=== PATIENT | male | born 1950 | race Caucasian/White ===

== ENCOUNTER 2016-11-01 19:05 | Inpatient (IN) | payer MEDICARE ==
[2016-11-01] MEDS ORDERED: Dextrose 50% Abboject 50 ML SYRINGE IVP PRN (20:38)
[2016-11-01] MEDS ORDERED: Dextrose 5% in Water 1,000 ML IV PRN (20:38)
[2016-11-01] MEDS ORDERED: HumaLOG 300 UNITS/3 ML VIAL SC PRN (20:38)
[2016-11-01] MEDS ORDERED: Carvedilol 25 MG TAB PO SCH (20:45)
[2016-11-01] MEDS ORDERED: Loperamide HCl 2 MG CAP PO PRN (20:53)
[2016-11-01] MEDS ORDERED: Morphine Sulfate 2 MG/ML SYRINGE SLOW IVP PRN (20:54)
[2016-11-01] MEDS ORDERED: Potassium Chloride 20 MEQ TAB PO SCH (21:00)
[2016-11-01] MEDS ORDERED: Warfarin Sodium 5 MG TAB PO SCH (21:15)
[2016-11-01] MEDS: Pyridostigmine Bromide IR 60 MG TAB PO SCH (21:59)
[2016-11-01] MEDS: Mycophenolate 250 MG CAP PO SCH (22:00)
[2016-11-01] MEDS: Lisinopril 20 MG TAB PO SCH (22:00)
[2016-11-01] MEDS: Pregabalin 75 MG CAP PO SCH (22:08)
[2016-11-01] MEDS: Famotidine 20 MG TAB PO SCH (22:29)
[2016-11-01] MEDS: Doxycycline 100 MG CAP PO SCH ×2 (22:30→22:34)
[2016-11-01] MEDS: Nystatin Powder 15 GM BOT TOP SCH (22:30)
[2016-11-01] MEDS: AZELASTINE EA NARE SCH (22:31)
[2016-11-01] MEDS: HYDROcodone/Acetaminophen 10/325 mg Tablet PO PRN (22:38)
[2016-11-01 22:55] VITALS: BMI 64.3
[2016-11-02] MEDS: Carvedilol 25 MG TAB PO SCH ×2 (08:56→18:00)
[2016-11-02] MEDS: Potassium Chloride 20 MEQ TAB PO SCH ×3 (08:56→18:00)
[2016-11-02] MEDS: Doxycycline 100 MG CAP PO SCH ×2 (08:58→20:55)
[2016-11-02] MEDS: Colchicine 0.6 MG TAB PO SCH (08:58)
[2016-11-02] MEDS: Famotidine 20 MG TAB PO SCH ×2 (08:59→20:55)
[2016-11-02] MEDS: Fluticasone Propionate Nasal Spray 16 gm Bottle NASAL SCH (08:59)
[2016-11-02] MEDS: Nystatin Powder 15 GM BOT TOP SCH ×2 (09:01→21:00)
[2016-11-02] MEDS: Pregabalin 75 MG CAP PO SCH ×3 (09:02→20:56)
[2016-11-02] MEDS: predniSONE 20 MG TAB PO SCH (09:02)
[2016-11-02] MEDS: Pyridostigmine Bromide IR 60 MG TAB PO SCH ×3 (09:03→20:54)
[2016-11-02] MEDS: Saccharomyces boulardii 250 MG CAP PO SCH (09:03)
[2016-11-02] MEDS: Tamsulosin HCl 0.4 MG CAP PO SCH (09:04)
[2016-11-02] MEDS: Torsemide 20 MG TAB PO SCH (09:04)
[2016-11-02] MEDS: Mycophenolate 250 MG CAP PO SCH ×2 (09:44→21:02)
[2016-11-02] MEDS: HYDROcodone/Acetaminophen 10/325 mg Tablet PO PRN ×3 (09:46→20:57)
--- NOTE | 2016-11-02 14:27 | HP ---
DATE OF ADMISSION: 11/01/2016 HISTORY OF PRESENT ILLNESS: Mr. Perez is a very pleasant 65-year-old white male transferred fro [facility] for continued IV antibiotics, physical therapy and occupational therapy. He was noted as 5 foot and 11 inches, 461 pounds. His BMI is 64.4. This patient is a 65-year-old white male with multiple medical problems including chronic venous ins ufficiency, chronic diastolic heart failure, severe COPD, obstructive sleep apnea on BiPAP at night , myasthenia gravis, chronic steroid therapy, morbid obesity. He was stabilized, he was admitt ed to the hospital and noted to have significant left lower extremity cellulitis with prior DVT the last admission. He was admitted, seen by Dr. Murillo, Dr. Chew, [facility], he stabilized and transferred here for continued IV antibiotics and for control of his diarrhea and physical therapy and occupational therapy. PAST MEDICAL HISTORY: 1. Myasthenia gravis. 2. Chronic hepatitis C which is being cared per by Dr. Murillo. 3. Severe chronic obstructive pulmonary disease. 4. Bilateral lower extremity venous insufficiency. 5. 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 6. Benign prostatic hypertrophy. 7. Hypertension. 8. Obstructive sleep apnea. 9. Chronic diastolic heart failure. 10. Deep venous thrombosis in the past. 11. Neurogenic bladder secondary to myasthenia gravis versus just plain benign prostatic hypertroph y. 12. Physical deconditioning. PAST SURGICAL HISTORY: Reveals the patient has had the followin. Cholecystectomy. 2. Right knee arthroscopy. 3. Colonoscopy. 4. Tonsillectomy. ALLERGIES: The patient is allergic to the following, which include CLINDAMYCIN, VANCOMYCIN, QUINOLO NE and AMOXICILLIN. SOCIAL HISTORY: Reveals the patient was previously living with his dad in [facility] and had home h [facility] services until he became ill and [facility]. Denies any alcoh ol. Denies any tobacco or illicit drug use. FAMILY HISTORY: Reveals the patient's mom and dad both have dementia in their old age and patient p resently lives with his dad. PRESENT MEDICATIONS: Reveal he is presently on the followin. [place] 10 q.4 hours p.r.n. severe pain. 2. DuoNebs p.r.n. 3. Norvasc 5 mg at bedtime. 4. Carvedilol 25 mg twice a day. 5. Colcrys 0.6 daily. 6. Lomotil 1 tab q.6 hours p.r.n. diarrhea. 7. Vibramycin 100 mg b.i.d. in the next 2 weeks. 8. Pepcid 20 mg b.i.d. 9. Fluticasone nasal spray daily. 10. Glucagon p.r.n. 11. Humalog sliding scale, mild. 12. Lisinopril 40 mg at bedtime. 13. Imodium p.r.n. 14. Morphine sulfate 2 mg IV q.4 hours p.r.n. 15. CellCept 1000 mg p.o. b.i.d. 16. Nystatin powder topically b.i.d. 17. Azelastine spray one spray each nostril at bedtime. 18. Protonix 40 mg daily. 19. Pyridostigmine extended release 90 mg each day. The patient usually has 180 mg at home and chance es a half a pill. 20. Potassium 40 mEq 3 times daily. 21. Prednisone 40 mg each morning. 22. Lyrica 75 mg 3 times daily. 23. Mestinon/pyridostigmine regular immediate release 30 mg 3 times daily. 24. Florastor 250 mg daily. 25. Flomax 0.4 mg daily. 26. Demadex 100 mg each morning. 27. Coumadin 5 mg each day. REVIEW OF SYSTEMS: The patient denies any fever, chills, weight gain or weight loss. Patient denie s any problems with his vision or double vision. The patient denies any hearing problems. Patient denies any nosebleeds, neck stiffness, pain or tenderness. Patient denies any shortness of breath, cough, cold, congestion, wheezing and states he wears his BiPAP at night, but has been getting way w ith 2 liters of oxygen while in the hospital. Denies any chest pain, palpitations, dyspnea on exert ion or orthopnea. Denies any nausea, vomiting, diarrhea, constipation, poor appetite, abdominal patrick n, heartburn. Denies any urgency, frequency, dysuria or nocturia. Denies any pain or swelling in h is muscles. Denies any significant anxiety depressive disorder. Denies any skin rashes or bleeding tendencies. PHYSICAL EXAMINATION: VITAL SIGNS: This morning, reveals blood pressure 140/63, pulse 60-68, respirations 18-20, O2 sat 9 5-94% on 2 liters. T-max of 96.6. GENERAL: This is a well-developed, well-nourished, morbidly obese white male in no apparent distres s at this time. He did weigh 461 pounds here. HEENT: Reveals normocephalic, nontraumatic cranium. Pupils are equally round and reactive. Extrao cular movements intact. Nose and throat are slightly dry. NECK: Supple, without masses, nodes or bruits. CHEST: Clear to auscultation. No rales, rhonchi or wheezes are heard. HEART: Reveals a regular rate and rhythm without murmurs, gallops or rubs. Heart is very distant. ABDOMEN: Morbidly obese, unable to feel any organs. No rebound or guarding is noted. Normal bowel sounds are noted. : Deferred. The patient has a Stewart catheter. EXTREMITIES: Reveal significantly normal range of motion for the patient's weight. The right lower extremity is still a bit redder than the other, not significantly tender. NEUROLOGIC: The patient has no focal deficits. The patient is oriented to person, place, and time. IMPRESSION AND PLAN: 1. Acute on chronic left lower extremity cellulitis. Patient will be continued on his vibramycin. This may also be on top of his chronic venous insufficiency. Unfortunately, we were unable to get any Vibramycin, so we will continue that orally. I did discuss with the pharmacist and he said the drug levels were 90+ percent orally. We will also get the probiotics. 2. Morbid obesity. The patient has a bariatric bed in his room. 3. Hypokalemia. We will continue to follow his potassium closely daily. Monitor his magnesium. 4. Obstructive sleep apnea. The patient will try to get his BiPAP machine, which is set at 16/14. 5. Severe chronic obstructive pulmonary disease. The patient is presently stable. Continue his Du oNebs as needed. Follow up with Dr. Hester as noted. 6. Deep venous thrombosis. Continue his Coumadin. We will get an INR. 7. Myasthenia gravis. 8. Continued extended release 90 mg at bedtime along with 40 mg each day along with a 30 mg 3 times daily. 9. Follow his blood pressure closely with lisinopril each day, amlodipine 5 mg each day. 10. Continue to follow the patient's chronic diastolic heart failure. Continue his Demadex every d ay. 11. Reflex will continue with his Protonix and his Pepcid. 12. Benign prostatic hypertrophy. Continue with his Flomax and follow up with Dr. Chew as noa garner. I will continue the Stewart catheter needed now. 13. For his peripheral neuropathy, we will continue with Lyrica. 14. Continue CellCept 1 gram twice a day for his underlying myasthenia gravis; for his deep venous thrombosis, we will continue his Coumadin therapy. 15. Code status: The patient is noted to be a full code. I have discussed all this with the patie nt. He wants to be able to get better, so he can go home.
[2016-11-02] MEDS: Warfarin Sodium 5 MG TAB PO SCH (18:01)
[2016-11-02] MEDS: HumaLOG 300 UNITS/3 ML VIAL SC PRN (18:02)
[2016-11-02] MEDS: AZELASTINE EA NARE SCH (20:53)
[2016-11-02] MEDS: Lisinopril 20 MG TAB PO SCH (20:55)
[2016-11-02] MEDS ORDERED: PYRIDOSTIGMINE PO SCH (21:00)
[2016-11-03 07:05] LABS: Hematocrit 36.1 % (42.0-52.0); Neutrophil 49 % (42-75); Red Blood Cell (RBC) Count 3.83 mill/uL (4.70-6.10); White Blood Cell (WBC) Count 10.2 thou/uL (4.8-10.8)
[2016-11-03 07:13] LABS: Prothrombin Time 19.4 SEC (12.0-14.7)
[2016-11-03 07:21] LABS: ALT (SGPT) 48 U/L (0-55); AST (SGOT) 28 U/L (5-34); Alkaline Phosphatase 52 U/L (40-150); Anion Gap 18 mmol/L (10-20); BUN (Urea Nitrogen) 19 mg/dL (8.4-25.7); Bilirubin, Total 0.4 mg/dL (0.2-1.2); Calc. Creatinine Clearance 254 mL/min (70-130); Calcium 8.5 mg/dL (7.8-10.44); Carbon Dioxide 28 mmol/L (23-31); Chloride 101 mmol/L (98-107); Estimated GFR-MDRD 87; Globulin 2.8 g/dL (2.4-3.5); Protein, Total 6.1 g/dL (5.8-8.1)
--- NOTE | 2016-11-03 08:38 | PRG ---
DATE OF SERVICE: 11/03/2016. HISTORY OF PRESENT ILLNESS: Mr. Perez is a 65-year-old white male with multiple medical problem s includin. Chronic venous insufficiency. 2. Chronic diastolic heart failure. 3. Severe chronic obstructive pulmonary disease. 4. Obstructive sleep apnea, on BiPAP at night at 916-14. 5. Myasthenia gravis. 6. Chronic steroid therapy. 7. Morbid obesity. He is at [facility], seen by Dr. Murillo, Dr. Chew, Dr. Preciado and transferred here for physical therapy and occupational therapy, and continued IV antibiotics. The patient has also had significant gout. He has been on Colcrys 0.6 b.i.d. We decreased that yes terday to 0.6 daily. SUBJECTIVE: The patient states he is feeling much better. He is not having as much of the probable , he feels much stronger and he is ready for physical therapy, start tomorrow. OBJECTIVE: VITAL SIGNS: Revealed blood pressure this morning 120/69, pulse 70, respirations 20, O2 saturations 93%, temperature 97.1. PHYSICAL EXAMINATION: GENERAL: This is a well-developed, well-nourished, morbidly obese, 461-pound white male, in no appa rent distress at this time. HEENT: Reveals normocephalic, nontraumatic cranium. Pupils are equally round and reactive. Extrao cular movements intact. Nose and throat slightly dry. NECK: Supple, without masses, nodes or bruits. CHEST: Clear to auscultation. No rales, rhonchi or wheezes are heard. CARDIOVASCULAR: Reveals a regular rate and rhythm without murmurs, gallops or rubs. ABDOMEN: Morbidly obese, unable to feel for any organomegaly. No rebound or guarding is noted. No rmal bowel sounds are noted. GENITOURINARY: Reveals Stewart catheter. EXTREMITIES: Revealed right lower extremity still slightly red and other not significant tenderness , swelling is definitely down. NEUROLOGIC: No focal deficits. The patient is oriented to person, place and time. ASSESSMENT: 1. Acute on chronic left lower extremity cellulitis. The patient to be continued on vibramycin. 2. Chronic venous insufficiency. 3. Morbid obesity. 4. Hypokalemia. Follow potassium closely. 5. Obstructive sleep apnea. The patient has a bilevel positive airway pressure machine. 6. Severe chronic obstructive pulmonary disease. Continue DuoNebs. Follow up with Dr. Hester. 7. Deep venous thrombosis. Continue Coumadin. Get an INR this morning. 8. Myasthenia gravis, continue with his medications 30 mg at breakfast, lunch and supper and half o f an extended release 180 mg at bedtime. 9. Follow blood pressure closely. The patient is on lisinopril and amlodipine. 10. Continue to follow the patient diastolic congestive heart failure. 11. Continue his Demadex every day. 12. Continue to son his reflux with Protonix and Pepcid. 13. His benign prostatic hypertrophy we will be continue battled with Flomax and follow up with Dr. Chew as needed. 14. Gout. We will need to order a uric acid on him with labs this morning. 15. Peripheral neuropathy, is controlled with Lyrica. 16. Continue CellCept 1 gram twice a day for his underlying myasthenia gravis. 17. For his deep venous thrombosis, we will continue his Coumadin and follow his INR level for this morning. 18. The patient is noted to be a do not intubate and I did discuss with him this morning.
[2016-11-03] MEDS: Potassium Chloride 20 MEQ TAB PO SCH ×2 (09:06→12:47)
[2016-11-03] MEDS: Carvedilol 25 MG TAB PO SCH ×2 (09:06→17:00)
[2016-11-03] MEDS: Colchicine 0.6 MG TAB PO SCH (09:07)
[2016-11-03] MEDS: Fluticasone Propionate Nasal Spray 16 gm Bottle NASAL SCH (09:08)
[2016-11-03] MEDS: Famotidine 20 MG TAB PO SCH (09:08)
[2016-11-03] MEDS: Doxycycline 100 MG CAP PO SCH (09:08)
[2016-11-03] MEDS: Mycophenolate 250 MG CAP PO SCH (09:09)
[2016-11-03] MEDS: predniSONE 20 MG TAB PO SCH (09:09)
[2016-11-03] MEDS: Nystatin Powder 15 GM BOT TOP SCH (09:09)
[2016-11-03] MEDS: Tamsulosin HCl 0.4 MG CAP PO SCH (09:10)
[2016-11-03] MEDS: Pregabalin 75 MG CAP PO SCH (09:10)
[2016-11-03] MEDS: Saccharomyces boulardii 250 MG CAP PO SCH (09:11)
[2016-11-03] MEDS: Pyridostigmine Bromide IR 60 MG TAB PO SCH ×2 (09:11→12:48)
[2016-11-03] MEDS: Torsemide 20 MG TAB PO SCH (09:12)
[2016-11-03] MEDS: HYDROcodone/Acetaminophen 10/325 mg Tablet PO PRN (12:48)
[2016-11-03] MEDS: Warfarin Sodium 5 MG TAB PO SCH (17:00)
[2016-11-04] MEDS: Potassium Chloride 20 MEQ TAB PO SCH ×4 (08:30→17:29)
[2016-11-04] MEDS: Pyridostigmine Bromide IR 60 MG TAB PO SCH ×4 (08:30→17:31)
[2016-11-04] MEDS: Nystatin Powder 15 GM BOT TOP SCH ×3 (08:30→20:32)
[2016-11-04] MEDS: Carvedilol 25 MG TAB PO SCH ×2 (08:30→17:31)
[2016-11-04] MEDS: Famotidine 20 MG TAB PO SCH ×2 (09:00→20:32)
[2016-11-04] MEDS: Tamsulosin HCl 0.4 MG CAP PO SCH (09:00)
[2016-11-04] MEDS: Mycophenolate 250 MG CAP PO SCH ×3 (09:00→20:29)
[2016-11-04] MEDS: Doxycycline 100 MG CAP PO SCH ×2 (09:00→20:28)
[2016-11-04] MEDS: predniSONE 20 MG TAB PO SCH (09:00)
[2016-11-04] MEDS: Pregabalin 75 MG CAP PO SCH ×4 (09:00→20:33)
[2016-11-04] MEDS: Saccharomyces boulardii 250 MG CAP PO SCH (09:00)
[2016-11-04] MEDS: Colchicine 0.6 MG TAB PO SCH (09:00)
[2016-11-04] MEDS: Torsemide 20 MG TAB PO SCH (09:00)
[2016-11-04] MEDS: Fluticasone Propionate Nasal Spray 16 gm Bottle NASAL SCH (10:56)
[2016-11-04] MEDS: HYDROcodone/Acetaminophen 10/325 mg Tablet PO PRN ×3 (11:39→21:29)
--- NOTE | 2016-11-04 13:32 | PRG ---
DATE OF SERVICE: 11/04/2016 SUBJECTIVE: Mr. Perez is resting comfortably. He has had 3 loose stools today. He denies any fever or chills. He denies any lightheadedness, dizziness. He did participate with therapy. He st ates he is using his CPAP. OBJECTIVE: VITAL SIGNS: He is afebrile, heart rate is 74, respiration is 18, oxygen saturation is 129/68. CARDIOVASCULAR: S1, S2 plus. RESPIRATORY: Normal vesicular breath sounds. ABDOMEN: Soft, obese, nontender, bowel sounds heard in all quadrants. EXTREMITIES: Chronic stasis changes are noted with venous insufficiency. LABORATORY: White count is 10.2, H\T\H is 11.5 and 36.1. Blood sugars are 110, 159, 150, 108 and 1 15. Sodium 143, potassium 3.9, BUN and creatinine is 19 and 0.88. He apparently had stool for C. d iff done prior to transfer and that was on 11/01/2016 and it was negative. PLAN: 1. Redo stool for C. diff. 2. Imodium 2 tablets after every loose stool, maximum of 8 in 24 hours. 3. Continue CPAP. 4. Physical therapy. 5. DVT and stress ulcer prophylaxis. 6. Decubitus precautions. 7. Routine laboratory values. 8. Continue current medications. IMPRESSION: 1. Myasthenia gravis with lower extremity cellulitis, improving. 2. Gout. 3. Morbid obesity. 4. Deconditioning. 5. Benign prostatic hypertrophy. 6. Chronic obstructive pulmonary disease. 7. Chronic hepatitis C. 8. Obstructive sleep apnea. For full details, please see chart. No family at the bedside.
[2016-11-04] MEDS: Warfarin Sodium 5 MG TAB PO SCH (17:30)
[2016-11-04] MEDS: HumaLOG 300 UNITS/3 ML VIAL SC PRN (17:46)
[2016-11-04] MEDS: Lisinopril 20 MG TAB PO SCH (20:29)
[2016-11-04] MEDS: PYRIDOSTIGMINE BROMIDE 180 MG PO SCH (20:30)
[2016-11-04] MEDS: AZELASTINE EA NARE SCH (20:32)
[2016-11-05 05:53] LABS: #Basophils 0.1 thou/uL (0.0-0.2); #Eosinphils 0.1 thou/uL (0.0-0.7); #Lymphocytes 4.3 thou/uL (1.20-3.40); #Neutrophils 5.6 thou/uL (1.40-6.50); %Basophils 1.2 % (0.0-1.0); %Lymphocytes 38.4 % (21.0-51.0); %Monocytes 9.1 % (0.0-10.0); Hematocrit 39.6 % (42.0-52.0); Mean Platelet Volume 6.2 fL (7.4-10.4); White Blood Cell (WBC) Count 11.2 thou/uL (4.8-10.8)
[2016-11-05 05:55] LABS: Anion Gap 16 mmol/L (10-20); BUN (Urea Nitrogen) 22 mg/dL (8.4-25.7); Calc. Creatinine Clearance 217 mL/min (70-130); Calcium 8.6 mg/dL (7.8-10.44); Carbon Dioxide 27 mmol/L (23-31); Chloride 104 mmol/L (98-107); Estimated GFR-MDRD 73; Prothrombin Time 22.5 SEC (12.0-14.7)
[2016-11-05] MEDS: HYDROcodone/Acetaminophen 10/325 mg Tablet PO PRN ×4 (05:58→21:14)
[2016-11-05] MEDS: Carvedilol 25 MG TAB PO SCH ×2 (08:13→17:11)
[2016-11-05] MEDS: Potassium Chloride 20 MEQ TAB PO SCH ×3 (08:13→17:10)
[2016-11-05] MEDS: Fluticasone Propionate Nasal Spray 16 gm Bottle NASAL SCH (08:22)
[2016-11-05] MEDS: Nystatin Powder 15 GM BOT TOP SCH ×2 (08:22→21:15)
[2016-11-05] MEDS: Colchicine 0.6 MG TAB PO SCH (08:41)
[2016-11-05] MEDS: predniSONE 20 MG TAB PO SCH (08:42)
[2016-11-05] MEDS: Pyridostigmine Bromide IR 60 MG TAB PO SCH ×3 (08:42→17:11)
[2016-11-05] MEDS: Tamsulosin HCl 0.4 MG CAP PO SCH (08:42)
[2016-11-05] MEDS: Mycophenolate 250 MG CAP PO SCH ×2 (08:42→21:11)
[2016-11-05] MEDS: Torsemide 20 MG TAB PO SCH (08:43)
[2016-11-05] MEDS: Famotidine 20 MG TAB PO SCH ×2 (08:43→21:14)
[2016-11-05] MEDS: Saccharomyces boulardii 250 MG CAP PO SCH (08:43)
[2016-11-05] MEDS: Pregabalin 75 MG CAP PO SCH ×3 (08:44→21:14)
[2016-11-05] MEDS: Doxycycline 100 MG CAP PO SCH ×2 (08:45→21:10)
[2016-11-05] MEDS: Diphenoxylate HCl/Atropine Tablet PO PRN ×2 (09:55→21:14)
--- NOTE | 2016-11-05 13:05 | PRG ---
DATE OF SERVICE: 11/05/2016 SUBJECTIVE: Mr. Perez is still having some diarrhea, but it is better with the Lomotil. He den ies any fever or chills. His C. diff was negative, just prior to transfer 3 days ago. He also is w ondering whether his blood draws can be done through his PICC line. No other concerns. He is up in his chair. OBJECTIVE: VITAL SIGNS: He is afebrile, heart rate is 68, respirations 16, blood pressure is 132/73, oxygen sa turation is 96%. CARDIOVASCULAR: S1, S2 plus. RESPIRATORY: Normal vesicular breath sounds. ABDOMEN: Soft, obese, nontender, bowel sounds heard in all quadrants. EXTREMITIES: Improved left leg cellulitis, chronic stasis dermatitis and venous insufficiency noted . IMPRESSION: 1. Resolving cellulitis. 2. Morbid obesity. 3. Obstructive sleep apnea. 4. Myasthenia gravis. 5. History of deep venous thrombosis. 6. Chronic obstructive pulmonary disease. 7. Deconditioning. 8. Benign prostatic hypertrophy. PLAN: 1. Continue current medications. 2. Monitor PT/INR, it was 2 today. 3. Nutritional support. 4. Physical therapy. 5. Nocturnal CPAP. 6. DVT and stress ulcer prophylaxis. 7. Routine laboratory values and okay to draw labs through his PICC line.
[2016-11-05] MEDS: Warfarin Sodium 5 MG TAB PO SCH (17:10)
[2016-11-05] MEDS: HumaLOG 300 UNITS/3 ML VIAL SC PRN (17:46)
[2016-11-05] MEDS: Lisinopril 20 MG TAB PO SCH (21:11)
[2016-11-05] MEDS: PYRIDOSTIGMINE BROMIDE 180 MG PO SCH (21:12)
[2016-11-05] MEDS: AZELASTINE EA NARE SCH (21:13)
[2016-11-06] MEDS: Mycophenolate 250 MG CAP PO SCH ×3 (07:13→20:49)
[2016-11-06] MEDS: Doxycycline 100 MG CAP PO SCH ×2 (08:37→20:48)
[2016-11-06] MEDS: Pregabalin 75 MG CAP PO SCH ×3 (08:39→20:49)
[2016-11-06] MEDS: Potassium Chloride 20 MEQ TAB PO SCH ×3 (08:40→17:03)
[2016-11-06] MEDS: Carvedilol 25 MG TAB PO SCH ×2 (08:40→17:03)
[2016-11-06] MEDS: Fluticasone Propionate Nasal Spray 16 gm Bottle NASAL SCH (08:41)
[2016-11-06] MEDS: Colchicine 0.6 MG TAB PO SCH (08:41)
[2016-11-06] MEDS: predniSONE 20 MG TAB PO SCH (08:42)
[2016-11-06] MEDS: Pyridostigmine Bromide IR 60 MG TAB PO SCH ×3 (08:42→17:02)
[2016-11-06] MEDS: Nystatin Powder 15 GM BOT TOP SCH ×2 (08:42→20:50)
[2016-11-06] MEDS: Tamsulosin HCl 0.4 MG CAP PO SCH (08:43)
[2016-11-06] MEDS: Saccharomyces boulardii 250 MG CAP PO SCH (08:43)
[2016-11-06] MEDS: Torsemide 20 MG TAB PO SCH (08:43)
[2016-11-06] MEDS: HYDROcodone/Acetaminophen 10/325 mg Tablet PO PRN ×2 (08:44→20:50)
[2016-11-06] MEDS: Diphenoxylate HCl/Atropine Tablet PO PRN ×2 (08:44→15:01)
[2016-11-06] MEDS: Famotidine 20 MG TAB PO SCH ×2 (09:00→20:49)
--- NOTE | 2016-11-06 13:49 | PRG ---
DATE OF SERVICE: 11/06/2016 SUBJECTIVE: Mr. Perez is doing well. Denies any complaints except still having some loose stoo ls. This is a chronic problem and he has been on Lomotil for a long time. He is getting stronger. He denies any other complaints. I classified his DNI status because apparently in some places it i s DNR and in other places DNI. He says that he really does not want to be on a ventilator for more than 6-7 days, but if it his short term he is okay so he wants us to change it back to full code. OBJECTIVE: VITAL SIGNS: He is afebrile, heart rate is 63, respirations are 20, oxygen saturation is 94%, blood pressure 124/62. CARDIOVASCULAR: S1, S2 plus. RESPIRATORY: Normal vesicular breath sounds. ABDOMEN: Soft, obese, nontender, bowel sounds heard in all quadrants. EXTREMITIES: Chronic edema. CENTRAL NERVOUS SYSTEM: Improving weakness. IMPRESSION: 1. Myasthenia gravis. 2. Morbid obesity. 3. Obstructive sleep apnea. 4. Chronic diarrhea. 5. Deconditioning. 6. Benign prostatic hypertrophy. PLAN: 1. Continue Stewart catheter. 2. Physical therapy. 3. Nutritional support. 4. Change him to full code. 5. DVT and stress ulcer prophylaxis. 6. Decubitus precautions. 7. Routine laboratory values and monitor INR, it was 2.0 yesterday.
[2016-11-06] MEDS: Warfarin Sodium 5 MG TAB PO SCH (17:02)
[2016-11-06] MEDS: HumaLOG 300 UNITS/3 ML VIAL SC PRN (17:06)
[2016-11-06] MEDS: Lisinopril 20 MG TAB PO SCH (20:48)
[2016-11-06] MEDS: AZELASTINE EA NARE SCH (20:48)
[2016-11-06] MEDS: PYRIDOSTIGMINE BROMIDE 180 MG PO SCH (21:53)
[2016-11-07 05:57] LABS: Prothrombin Time 25.5 SEC (12.0-14.7)
[2016-11-07] MEDS: Pyridostigmine Bromide IR 60 MG TAB PO SCH ×3 (08:41→17:25)
[2016-11-07] MEDS: Doxycycline 100 MG CAP PO SCH ×3 (08:41→20:31)
[2016-11-07] MEDS: Nystatin Powder 15 GM BOT TOP SCH ×2 (08:42→20:35)
[2016-11-07] MEDS: Mycophenolate 250 MG CAP PO SCH ×2 (08:42→20:32)
[2016-11-07] MEDS: predniSONE 20 MG TAB PO SCH (08:42)
[2016-11-07] MEDS: Potassium Chloride 20 MEQ TAB PO SCH ×3 (08:43→17:26)
[2016-11-07] MEDS: Fluticasone Propionate Nasal Spray 16 gm Bottle NASAL SCH (08:43)
[2016-11-07] MEDS: Famotidine 20 MG TAB PO SCH ×2 (08:43→20:32)
[2016-11-07] MEDS: Pregabalin 75 MG CAP PO SCH ×3 (08:44→20:29)
[2016-11-07] MEDS: Carvedilol 25 MG TAB PO SCH ×2 (08:44→17:25)
[2016-11-07] MEDS: Colchicine 0.6 MG TAB PO SCH (08:45)
[2016-11-07] MEDS: Saccharomyces boulardii 250 MG CAP PO SCH (08:45)
[2016-11-07] MEDS: Torsemide 20 MG TAB PO SCH (08:45)
[2016-11-07] MEDS: Tamsulosin HCl 0.4 MG CAP PO SCH (08:45)
[2016-11-07] MEDS: Diphenoxylate HCl/Atropine Tablet PO PRN ×2 (08:51→14:17)
[2016-11-07] MEDS: HYDROcodone/Acetaminophen 10/325 mg Tablet PO PRN ×2 (08:52→20:28)
--- NOTE | 2016-11-07 13:27 | PRG ---
DATE OF SERVICE: 11/07/2016 SUBJECTIVE: Mr. Perez is doing well. Denies any complaints, resting comfortably, tolerating hi s therapy. He walked about 60 feet, each way. He is getting up and going to the bathroom with assi stance. Denies any other concerns or questions. OBJECTIVE: VITAL SIGNS: He is afebrile, heart rate is 61, respirations are 20, oxygen saturation 93%, blood pr essure 135/75. CARDIOVASCULAR: S1, S2 plus. RESPIRATORY: Normal vesicular breath sounds. ABDOMEN: Soft, obese, nontender, bowel sounds heard in all quadrants. EXTREMITIES: Chronic venous insufficiency. LABORATORY VALUES: Blood sugars are 159, 125, 106 and 114. His last potassium was 4.0. IMPRESSION: 1. Resolving cellulitis. 2. Improving deconditioning. 3. Morbid obesity. 4. Obstructive sleep apnea. 5. Benign prostatic hypertrophy. 6. Myasthenia gravis. PLAN: 1. Continue current medications. 2. Nutritional support. 3. DVT and stress ulcer prophylaxis. 4. Decubitus precautions. 5. Routine laboratory values. 6. Continue warfarin. His INR is 2.4 today.
[2016-11-07] MEDS: Warfarin Sodium 5 MG TAB PO SCH (17:26)
[2016-11-07] MEDS: HumaLOG 300 UNITS/3 ML VIAL SC PRN (17:31)
[2016-11-07] MEDS: Lisinopril 20 MG TAB PO SCH ×2 (19:17→20:30)
[2016-11-07] MEDS: PYRIDOSTIGMINE BROMIDE 180 MG PO SCH ×2 (19:18→20:33)
[2016-11-07] MEDS: AZELASTINE EA NARE SCH ×2 (19:18→20:40)
[2016-11-08] MEDS: HYDROcodone/Acetaminophen 10/325 mg Tablet PO PRN ×3 (06:33→20:33)
[2016-11-08] MEDS: Diphenoxylate HCl/Atropine Tablet PO PRN ×2 (06:33→14:34)
[2016-11-08] MEDS: Carvedilol 25 MG TAB PO SCH ×2 (08:55→17:45)
[2016-11-08] MEDS: Potassium Chloride 20 MEQ TAB PO SCH ×3 (09:10→17:44)
[2016-11-08] MEDS: Torsemide 20 MG TAB PO SCH (09:11)
[2016-11-08] MEDS: predniSONE 20 MG TAB PO SCH (09:11)
[2016-11-08] MEDS: Mycophenolate 250 MG CAP PO SCH ×2 (09:11→20:32)
[2016-11-08] MEDS: Pyridostigmine Bromide IR 60 MG TAB PO SCH ×3 (09:12→17:45)
[2016-11-08] MEDS: Tamsulosin HCl 0.4 MG CAP PO SCH (09:12)
[2016-11-08] MEDS: Saccharomyces boulardii 250 MG CAP PO SCH (09:13)
[2016-11-08] MEDS: Colchicine 0.6 MG TAB PO SCH (09:13)
[2016-11-08] MEDS: Famotidine 20 MG TAB PO SCH ×2 (09:13→20:34)
[2016-11-08] MEDS: Fluticasone Propionate Nasal Spray 16 gm Bottle NASAL SCH (09:14)
[2016-11-08] MEDS: Nystatin Powder 15 GM BOT TOP SCH ×2 (09:14→20:42)
[2016-11-08] MEDS: Pregabalin 75 MG CAP PO SCH ×3 (09:15→20:34)
[2016-11-08] MEDS: Doxycycline 100 MG CAP PO SCH ×2 (09:16→20:32)
[2016-11-08] MEDS: Warfarin Sodium 5 MG TAB PO SCH (17:46)
[2016-11-08] MEDS: Lisinopril 20 MG TAB PO SCH (20:33)
[2016-11-08] MEDS: PYRIDOSTIGMINE BROMIDE 180 MG PO SCH (20:35)
[2016-11-08] MEDS: AZELASTINE EA NARE SCH (20:36)
[2016-11-09] MEDS: HYDROcodone/Acetaminophen 10/325 mg Tablet PO PRN ×3 (05:33→20:26)
[2016-11-09] MEDS: Fluticasone Propionate Nasal Spray 16 gm Bottle NASAL SCH (08:35)
[2016-11-09] MEDS: Saccharomyces boulardii 250 MG CAP PO SCH (08:35)
[2016-11-09] MEDS: Nystatin Powder 15 GM BOT TOP SCH ×2 (08:35→20:21)
[2016-11-09] MEDS: Potassium Chloride 20 MEQ TAB PO SCH ×3 (08:35→16:26)
[2016-11-09] MEDS: Colchicine 0.6 MG TAB PO SCH (08:35)
[2016-11-09] MEDS: Carvedilol 25 MG TAB PO SCH ×2 (08:36→16:26)
[2016-11-09] MEDS: Tamsulosin HCl 0.4 MG CAP PO SCH (08:36)
[2016-11-09] MEDS: Torsemide 20 MG TAB PO SCH (08:41)
[2016-11-09] MEDS: Famotidine 20 MG TAB PO SCH ×2 (08:42→20:23)
[2016-11-09] MEDS: Mycophenolate 250 MG CAP PO SCH ×2 (08:42→20:21)
[2016-11-09] MEDS: Pyridostigmine Bromide IR 60 MG TAB PO SCH ×3 (08:42→16:26)
[2016-11-09] MEDS: Doxycycline 100 MG CAP PO SCH ×2 (08:43→20:22)
[2016-11-09] MEDS: predniSONE 20 MG TAB PO SCH (08:43)
[2016-11-09] MEDS: Pregabalin 75 MG CAP PO SCH ×3 (08:44→20:23)
--- NOTE | 2016-11-09 12:03 | PRG ---
DATE OF SERVICE: 11/09/2016 SUBJECTIVE: Mr. Perez is doing well. Denies any complaints, resting comfortably, tolerating hi s therapy. He apparently was on his feet a lot yesterday walking. His diarrhea is controlled. He is noticing some stinging in his left foot. OBJECTIVE: VITAL SIGNS: He is afebrile. Heart rate is 59, respirations are 18, oxygen saturation is 94%, bloo d pressure 123/65. CARDIOVASCULAR: S1, S2 plus. RESPIRATORY: Normal vesicular breath sounds. ABDOMEN: Soft, obese, nontender, bowel sounds heard in all quadrants. EXTREMITIES: Without cyanosis or clubbing. Chronic venous insufficiency. There is a localized are a of erythema in the lower 1/3 of his left leg associated with warmth consistent with recurrent cell ulitis. IMPRESSION: 1. Recurrent cellulitis. 2. Myasthenia gravis. 3. Morbid obesity. 4. Obstructive sleep apnea. 5. Benign prostatic hypertrophy. PLAN: 1. Restart Rocephin IV and doxycycline p.o. 2. Continue to monitor his warfarin. 3. Taper prednisone. 4. Continue Mestinon. 5. Local wound care. 6. DVT and stress ulcer prophylaxis. 7. Decubitus precautions.
[2016-11-09] MEDS: cefTRIAXone\\ROCEPHIN 2 GM in Sodium Chloride 0.9% 100 ML IVPB SCH (12:38)
[2016-11-09] MEDS: Diphenoxylate HCl/Atropine Tablet PO PRN (14:50)
[2016-11-09] MEDS: Warfarin Sodium 5 MG TAB PO SCH (16:26)
[2016-11-09] MEDS: PYRIDOSTIGMINE BROMIDE 180 MG PO SCH (20:20)
[2016-11-09] MEDS: Lisinopril 20 MG TAB PO SCH (20:22)
[2016-11-09] MEDS: AZELASTINE EA NARE SCH (20:24)
[2016-11-10 05:45] LABS: #Basophils 0.1 thou/uL (0.0-0.2); #Eosinphils 0.1 thou/uL (0.0-0.7); #Lymphocytes 4.3 thou/uL (1.20-3.40); #Neutrophils 5.5 thou/uL (1.40-6.50); %Lymphocytes 39.3 % (21.0-51.0); %Monocytes 9.1 % (0.0-10.0); Hematocrit 34.9 % (42.0-52.0); Mean Platelet Volume 6.3 fL (7.4-10.4); Red Blood Cell (RBC) Count 3.74 mill/uL (4.70-6.10)
[2016-11-10 05:55] LABS: Anion Gap 17 mmol/L (10-20); BUN (Urea Nitrogen) 27 mg/dL (8.4-25.7); Calc. Creatinine Clearance 186 mL/min (70-130); Calcium 8.5 mg/dL (7.8-10.44); Carbon Dioxide 28 mmol/L (23-31); Chloride 101 mmol/L (98-107); Estimated GFR-MDRD 61
[2016-11-10] MEDS: Fluticasone Propionate Nasal Spray 16 gm Bottle NASAL SCH (08:07)
[2016-11-10] MEDS: Colchicine 0.6 MG TAB PO SCH (08:07)
[2016-11-10] MEDS: Nystatin Powder 15 GM BOT TOP SCH ×2 (08:07→20:29)
[2016-11-10] MEDS: Pyridostigmine Bromide IR 60 MG TAB PO SCH ×3 (08:08→17:28)
[2016-11-10] MEDS: predniSONE 20 MG TAB PO SCH (08:08)
[2016-11-10] MEDS: Torsemide 20 MG TAB PO SCH (08:10)
[2016-11-10] MEDS: Mycophenolate 250 MG CAP PO SCH ×2 (08:11→20:30)
[2016-11-10] MEDS: Famotidine 20 MG TAB PO SCH ×2 (08:12→20:30)
[2016-11-10] MEDS: Potassium Chloride 20 MEQ TAB PO SCH ×3 (08:12→17:27)
[2016-11-10] MEDS: Doxycycline 100 MG CAP PO SCH ×2 (08:12→20:30)
[2016-11-10] MEDS: Pregabalin 75 MG CAP PO SCH ×3 (08:13→20:30)
[2016-11-10] MEDS: Carvedilol 25 MG TAB PO SCH ×2 (08:13→17:27)
[2016-11-10] MEDS: Saccharomyces boulardii 250 MG CAP PO SCH (08:13)
[2016-11-10] MEDS: Tamsulosin HCl 0.4 MG CAP PO SCH (08:13)
[2016-11-10] MEDS: HYDROcodone/Acetaminophen 10/325 mg Tablet PO PRN ×3 (08:14→20:31)
[2016-11-10] MEDS: Diphenoxylate HCl/Atropine Tablet PO PRN (08:21)
[2016-11-10] MEDS: cefTRIAXone\\ROCEPHIN 2 GM in Sodium Chloride 0.9% 100 ML IVPB SCH (12:19)
--- NOTE | 2016-11-10 15:23 | PRG ---
DATE OF SERVICE: 11/10/2016 SUBJECTIVE: Mr. Perez is doing well. Denies any complaints. His leg pain is improved, left le g pain. Erythema also seems to be better. Denies any fever or chills. OBJECTIVE: VITAL SIGNS: He is afebrile, heart rate is 57, respirations are 20, oxygen saturation 93%, and bloo d pressure 133/64. CARDIOVASCULAR SYSTEM: S1, S2 plus. RESPIRATORY SYSTEM: Normal vesicular breath sounds. ABDOMEN: Soft, obese, nontender, bowel sounds heard. EXTREMITIES: Chronic venous stasis, locally cellulitis in his left leg is much improved. LABORATORY VALUES: White count is 11, H\T\H is 11.4 and 34.9. INR is 2.4. We will recheck it agai n tomorrow. Sodium 142, potassium 3.9, BUN and creatinine 27 and 1.2. Blood sugars are 131, 100, a nd 149. IMPRESSION: 1. Recurrent left lower leg cellulitis improved with addition of Rocephin. 2. Myasthenia gravis. 3. Morbid obesity. 4. Obstructive sleep apnea. 5. Improving deconditioning. 6. Urinary retention. PLAN: 1. Trial of removing Stewart catheter tomorrow. 2. Recheck PT/INR tomorrow. 3. Continue Rocephin and doxycycline. 4. Physical therapy. 5. Nutritional support. 6. Patient is willing to try to taper of prednisone and discussed with him and his family and all q uestions were answered.
[2016-11-10] MEDS: Warfarin Sodium 5 MG TAB PO SCH (17:29)
[2016-11-10] MEDS: AZELASTINE EA NARE SCH (20:28)
[2016-11-10] MEDS: PYRIDOSTIGMINE BROMIDE 180 MG PO SCH (20:29)
[2016-11-10] MEDS: Lisinopril 20 MG TAB PO SCH (20:31)
[2016-11-11 05:43] LABS: Prothrombin Time 30.3 SEC (12.0-14.7)
[2016-11-11] MEDS: HYDROcodone/Acetaminophen 10/325 mg Tablet PO PRN ×3 (05:48→21:02)
[2016-11-11] MEDS: Diphenoxylate HCl/Atropine Tablet PO PRN ×2 (05:48→11:54)
[2016-11-11] MEDS: Carvedilol 25 MG TAB PO SCH ×2 (08:43→17:26)
[2016-11-11] MEDS: Potassium Chloride 20 MEQ TAB PO SCH ×3 (08:44→17:26)
[2016-11-11] MEDS: predniSONE 10 MG TAB PO SCH (08:44)
[2016-11-11] MEDS: Colchicine 0.6 MG TAB PO SCH (08:46)
[2016-11-11] MEDS: Famotidine 20 MG TAB PO SCH ×2 (08:47→21:04)
[2016-11-11] MEDS: Fluticasone Propionate Nasal Spray 16 gm Bottle NASAL SCH (08:47)
[2016-11-11] MEDS: Doxycycline 100 MG CAP PO SCH ×2 (08:47→21:08)
[2016-11-11] MEDS: Nystatin Powder 15 GM BOT TOP SCH ×2 (08:48→21:00)
[2016-11-11] MEDS: Mycophenolate 250 MG CAP PO SCH ×2 (08:48→21:04)
[2016-11-11] MEDS: Pregabalin 75 MG CAP PO SCH ×3 (08:48→21:01)
[2016-11-11] MEDS: Pyridostigmine Bromide IR 60 MG TAB PO SCH ×3 (08:49→17:26)
[2016-11-11] MEDS: Tamsulosin HCl 0.4 MG CAP PO SCH (08:51)
[2016-11-11] MEDS: Torsemide 20 MG TAB PO SCH (08:51)
[2016-11-11] MEDS: Saccharomyces boulardii 250 MG CAP PO SCH (08:58)
[2016-11-11] MEDS: cefTRIAXone\\ROCEPHIN 2 GM in Sodium Chloride 0.9% 100 ML IVPB SCH (11:52)
--- NOTE | 2016-11-11 14:03 | PRG ---
DATE OF SERVICE: 11/11/2016 SUBJECTIVE: Mr. Perez is doing well. Denies any complaints, resting comfortably and tolerating his therapy. His prednisone was decreased to 35 mg and he is going to keep an eye on his symptoms and see if they are getting worse. He said, he usually notices with swallowing. He is also ready t o get his Stewart catheter removed. He does want to wear a diaper for a day or to just to make sure. No fever or chills. OBJECTIVE: VITAL SIGNS: He is afebrile. Heart rate is 57, respirations are 20, oxygen saturation is 93% and b lood pressure is 113/56. CARDIOVASCULAR SYSTEM: S1 and S2 plus. RESPIRATORY SYSTEM: Normal vesicular breath sounds. ABDOMEN: Soft, obese and nontender. Bowel sounds are heard in all quadrants. EXTREMITIES: Chronic venous stasis and much improved cellulitis in the left lower leg. Open area i s healing and it is healthy. IMPRESSION: 1. Resolving cellulitis. 2. Morbid obesity. 3. Myasthenia gravis. 4. Deconditioning. 5. Benign prostatic hypertrophy with urinary retention. 6. Improving deconditioning. PLAN: 1. Trial of decreasing prednisone to 35 mg. 2. Continue IV Rocephin. 3. Discontinue Stewart catheter. 4. Physical therapy. 5. Wound care. 6. Routine laboratory values.
[2016-11-11] MEDS: Warfarin Sodium 5 MG TAB PO SCH (17:26)
[2016-11-11] MEDS: PYRIDOSTIGMINE BROMIDE 180 MG PO SCH (21:00)
[2016-11-11] MEDS: AZELASTINE EA NARE SCH (21:01)
[2016-11-11] MEDS: Lisinopril 20 MG TAB PO SCH (21:05)
[2016-11-12 06:56] LABS: Prothrombin Time 27.4 SEC (12.0-14.7)
[2016-11-12] MEDS: Potassium Chloride 20 MEQ TAB PO SCH ×3 (08:20→17:35)
[2016-11-12] MEDS: Carvedilol 25 MG TAB PO SCH ×2 (08:20→17:35)
[2016-11-12] MEDS: predniSONE 10 MG TAB PO SCH (08:21)
[2016-11-12] MEDS: Doxycycline 100 MG CAP PO SCH ×2 (08:22→20:11)
[2016-11-12] MEDS: Colchicine 0.6 MG TAB PO SCH (08:22)
[2016-11-12] MEDS: Fluticasone Propionate Nasal Spray 16 gm Bottle NASAL SCH (08:23)
[2016-11-12] MEDS: Famotidine 20 MG TAB PO SCH ×2 (08:23→20:10)
[2016-11-12] MEDS: Mycophenolate 250 MG CAP PO SCH ×2 (08:23→20:10)
[2016-11-12] MEDS: Pregabalin 75 MG CAP PO SCH ×3 (08:24→20:09)
[2016-11-12] MEDS: Nystatin Powder 15 GM BOT TOP SCH ×2 (08:24→20:07)
[2016-11-12] MEDS: Pyridostigmine Bromide IR 60 MG TAB PO SCH ×3 (08:25→17:36)
[2016-11-12] MEDS: Torsemide 20 MG TAB PO SCH (08:26)
[2016-11-12] MEDS: Tamsulosin HCl 0.4 MG CAP PO SCH (08:26)
[2016-11-12] MEDS: Saccharomyces boulardii 250 MG CAP PO SCH (08:26)
[2016-11-12] MEDS: HYDROcodone/Acetaminophen 10/325 mg Tablet PO PRN ×3 (08:27→20:09)
[2016-11-12] MEDS: cefTRIAXone\\ROCEPHIN 2 GM in Sodium Chloride 0.9% 100 ML IVPB SCH (11:40)
[2016-11-12] MEDS: Diphenoxylate HCl/Atropine Tablet PO PRN ×2 (14:51→22:22)
[2016-11-12] MEDS: Warfarin Sodium 5 MG TAB PO SCH (17:36)
[2016-11-12] MEDS: AZELASTINE EA NARE SCH (20:06)
[2016-11-12] MEDS: PYRIDOSTIGMINE BROMIDE 180 MG PO SCH (20:08)
[2016-11-12] MEDS: Lisinopril 20 MG TAB PO SCH (20:11)
[2016-11-13] MEDS: HYDROcodone/Acetaminophen 10/325 mg Tablet PO PRN ×3 (04:56→20:55)
[2016-11-13] MEDS: predniSONE 10 MG TAB PO SCH (08:00)
[2016-11-13] MEDS: Potassium Chloride 20 MEQ TAB PO SCH ×3 (08:00→16:55)
[2016-11-13] MEDS: Carvedilol 25 MG TAB PO SCH ×2 (08:00→16:53)
[2016-11-13] MEDS: Torsemide 20 MG TAB PO SCH (09:15)
[2016-11-13] MEDS: Famotidine 20 MG TAB PO SCH ×2 (09:15→20:52)
[2016-11-13] MEDS: Tamsulosin HCl 0.4 MG CAP PO SCH (09:17)
[2016-11-13] MEDS: Mycophenolate 250 MG CAP PO SCH ×2 (09:17→20:52)
[2016-11-13] MEDS: Colchicine 0.6 MG TAB PO SCH (09:17)
[2016-11-13] MEDS: Nystatin Powder 15 GM BOT TOP SCH ×2 (09:17→20:53)
[2016-11-13] MEDS: Pyridostigmine Bromide IR 60 MG TAB PO SCH ×3 (09:18→16:54)
[2016-11-13] MEDS: Saccharomyces boulardii 250 MG CAP PO SCH (09:18)
[2016-11-13] MEDS: Pregabalin 75 MG CAP PO SCH ×3 (09:19→20:53)
[2016-11-13] MEDS: Fluticasone Propionate Nasal Spray 16 gm Bottle NASAL SCH (09:19)
[2016-11-13] MEDS: Doxycycline 100 MG CAP PO SCH ×2 (09:22→20:52)
--- NOTE | 2016-11-13 12:46 | PRG ---
DATE OF SERVICE: 11/13/2016. SUBJECTIVE: Ms. Perez is doing well. Denies any complaints, resting comfortably, tolerating hi s medications. He denies any fever or chills. He still is requiring to wear his diapers because he is having trouble with frequent urination. Denies any problems with retention. OBJECTIVE: VITAL SIGNS: He is afebrile, heart rate is 61, respiration rate 20, oxygen saturation 92%, blood pr essure 129/76. CARDIOVASCULAR: S1, S2 plus. RESPIRATORY: Normal vesicular breath sounds. ABDOMEN: Soft, nontender, bowel sounds heard in all quadrants. EXTREMITIES: Without cyanosis or clubbing. IMPRESSION: 1. Improving cellulitis. 2. Morbid obesity. 3. Obstructive sleep apnea. 4. Myasthenia gravis. 5. Resolved urinary retention. 6. Improving deconditioning. PLAN: 1. Continue Rocephin until Friday. 2. Continue to monitor INR. 3. Deep venous thrombosis and stress ulcer prophylaxes. 4. Decubitus precautions. 5. Routine laboratory values. 6. Physical therapy. 7. Nocturnal CPAP.
[2016-11-13] MEDS: Diphenoxylate HCl/Atropine Tablet PO PRN (12:56)
[2016-11-13] MEDS: cefTRIAXone\\ROCEPHIN 2 GM in Sodium Chloride 0.9% 100 ML IVPB SCH (12:58)
[2016-11-13] MEDS: Warfarin Sodium 5 MG TAB PO SCH (16:54)
[2016-11-13] MEDS: HumaLOG 300 UNITS/3 ML VIAL SC PRN (16:58)
[2016-11-13] MEDS: Lisinopril 20 MG TAB PO SCH (20:52)
[2016-11-13] MEDS: AZELASTINE EA NARE SCH (20:53)
[2016-11-13] MEDS: PYRIDOSTIGMINE BROMIDE 180 MG PO SCH (20:55)
[2016-11-14 06:09] LABS: Prothrombin Time 24.2 SEC (12.0-14.7)
[2016-11-14] MEDS: Nystatin Powder 15 GM BOT TOP SCH ×2 (08:14→20:42)
[2016-11-14] MEDS: Potassium Chloride 20 MEQ TAB PO SCH ×3 (08:15→17:54)
[2016-11-14] MEDS: Fluticasone Propionate Nasal Spray 16 gm Bottle NASAL SCH (08:15)
[2016-11-14] MEDS: predniSONE 10 MG TAB PO SCH (08:15)
[2016-11-14] MEDS: Carvedilol 25 MG TAB PO SCH ×2 (08:16→17:54)
[2016-11-14] MEDS: Diphenoxylate HCl/Atropine Tablet PO PRN ×3 (09:15→20:43)
[2016-11-14] MEDS: HYDROcodone/Acetaminophen 10/325 mg Tablet PO PRN ×3 (09:16→20:43)
[2016-11-14] MEDS: Torsemide 20 MG TAB PO SCH (09:56)
[2016-11-14] MEDS: Saccharomyces boulardii 250 MG CAP PO SCH (09:56)
[2016-11-14] MEDS: Mycophenolate 250 MG CAP PO SCH ×2 (09:56→20:41)
[2016-11-14] MEDS: Tamsulosin HCl 0.4 MG CAP PO SCH (09:57)
[2016-11-14] MEDS: Colchicine 0.6 MG TAB PO SCH (09:57)
[2016-11-14] MEDS: Famotidine 20 MG TAB PO SCH ×2 (09:57→20:40)
[2016-11-14] MEDS: Pyridostigmine Bromide IR 60 MG TAB PO SCH ×3 (09:57→17:54)
[2016-11-14] MEDS: Doxycycline 100 MG CAP PO SCH ×2 (09:58→20:40)
[2016-11-14] MEDS: Pregabalin 75 MG CAP PO SCH ×3 (09:58→20:43)
[2016-11-14] MEDS: cefTRIAXone\\ROCEPHIN 2 GM in Sodium Chloride 0.9% 100 ML IVPB SCH (12:47)
--- NOTE | 2016-11-14 13:39 | PRG ---
DATE OF SERVICE: 11/14/2016 SUBJECTIVE: Mr. Perez is doing well. Denies any complaints. He apparently walked about 120 fe et. He still has some issues with urinary incontinence. He denies any other concerns. OBJECTIVE: VITAL SIGNS: He is afebrile, heart rate is 90, respirations are 20, oxygen saturation is 93%, blood pressure 136/69. CARDIOVASCULAR: S1, S2 plus. RESPIRATORY: Normal vesicular breath sounds. ABDOMEN: Soft, obese, nontender, bowel sounds heard in all quadrants. EXTREMITIES: Improving cellulitis and stasis dermatitis is chronic. IMPRESSION: 1. Improving cellulitis. 2. Myasthenia gravis. 3. Obstructive sleep apnea. 4. Morbid obesity. 5. Improving deconditioning. PLAN: 1. Continue current medications. His INR is 2.2. 2. Continue physical therapy. 3. Nutritional support. 4. Stop Rocephin after tomorrow. 5. Routine laboratory values. 6. Nutritional support. 7. Decubitus precautions.
[2016-11-14] MEDS: Warfarin Sodium 5 MG TAB PO SCH (17:54)
[2016-11-14] MEDS: Lisinopril 20 MG TAB PO SCH (20:39)
[2016-11-14] MEDS: AZELASTINE EA NARE SCH (20:42)
[2016-11-14] MEDS: PYRIDOSTIGMINE BROMIDE 180 MG PO SCH (20:42)
[2016-11-15 05:57] LABS: Prothrombin Time 25.5 SEC (12.0-14.7)
[2016-11-15] MEDS: Carvedilol 25 MG TAB PO SCH ×2 (08:21→17:11)
[2016-11-15] MEDS: Potassium Chloride 20 MEQ TAB PO SCH ×3 (08:21→17:11)
[2016-11-15] MEDS: predniSONE 10 MG TAB PO SCH (08:22)
[2016-11-15] MEDS: Colchicine 0.6 MG TAB PO SCH (08:22)
[2016-11-15] MEDS: Doxycycline 100 MG CAP PO SCH ×2 (08:24→21:19)
[2016-11-15] MEDS: Famotidine 20 MG TAB PO SCH ×2 (08:24→21:20)
[2016-11-15] MEDS: Nystatin Powder 15 GM BOT TOP SCH ×2 (08:25→21:19)
[2016-11-15] MEDS: Mycophenolate 250 MG CAP PO SCH ×2 (08:25→21:19)
[2016-11-15] MEDS: Fluticasone Propionate Nasal Spray 16 gm Bottle NASAL SCH (08:25)
[2016-11-15] MEDS: Pregabalin 75 MG CAP PO SCH ×3 (08:26→21:21)
[2016-11-15] MEDS: Pyridostigmine Bromide IR 60 MG TAB PO SCH ×3 (08:27→17:12)
[2016-11-15] MEDS: Saccharomyces boulardii 250 MG CAP PO SCH (08:28)
[2016-11-15] MEDS: Tamsulosin HCl 0.4 MG CAP PO SCH (08:28)
[2016-11-15] MEDS: Torsemide 20 MG TAB PO SCH (08:28)
[2016-11-15] MEDS: HYDROcodone/Acetaminophen 10/325 mg Tablet PO PRN ×3 (08:29→21:22)
[2016-11-15] MEDS: cefTRIAXone\\ROCEPHIN 2 GM in Sodium Chloride 0.9% 100 ML IVPB SCH (12:55)
[2016-11-15] MEDS: Diphenoxylate HCl/Atropine Tablet PO PRN ×2 (12:57→17:12)
[2016-11-15] MEDS: Warfarin Sodium 5 MG TAB PO SCH (17:11)
[2016-11-15] MEDS: PYRIDOSTIGMINE BROMIDE 180 MG PO SCH (21:18)
[2016-11-15] MEDS: AZELASTINE EA NARE SCH (21:20)
[2016-11-15] MEDS: Lisinopril 20 MG TAB PO SCH (21:20)
[2016-11-16] MEDS: Carvedilol 25 MG TAB PO SCH ×2 (08:53→17:04)
[2016-11-16] MEDS: Potassium Chloride 20 MEQ TAB PO SCH ×3 (08:53→17:04)
[2016-11-16] MEDS: predniSONE 10 MG TAB PO SCH (08:54)
[2016-11-16] MEDS: Colchicine 0.6 MG TAB PO SCH (08:56)
[2016-11-16] MEDS: Famotidine 20 MG TAB PO SCH ×2 (08:57→20:55)
[2016-11-16] MEDS: Doxycycline 100 MG CAP PO SCH ×2 (08:57→20:56)
[2016-11-16] MEDS: Nystatin Powder 15 GM BOT TOP SCH ×2 (08:58→20:57)
[2016-11-16] MEDS: Mycophenolate 250 MG CAP PO SCH ×2 (08:58→20:53)
[2016-11-16] MEDS: Fluticasone Propionate Nasal Spray 16 gm Bottle NASAL SCH (08:58)
[2016-11-16] MEDS: Pregabalin 75 MG CAP PO SCH ×3 (08:59→20:54)
[2016-11-16] MEDS: Pyridostigmine Bromide IR 60 MG TAB PO SCH ×3 (09:00→17:05)
[2016-11-16] MEDS: Tamsulosin HCl 0.4 MG CAP PO SCH (09:00)
[2016-11-16] MEDS: Saccharomyces boulardii 250 MG CAP PO SCH (09:00)
[2016-11-16] MEDS: Torsemide 20 MG TAB PO SCH (09:01)
[2016-11-16] MEDS: HYDROcodone/Acetaminophen 10/325 mg Tablet PO PRN ×3 (09:01→20:57)
[2016-11-16] MEDS: Diphenoxylate HCl/Atropine Tablet PO PRN ×2 (09:03→17:05)
[2016-11-16] MEDS: cefTRIAXone\\ROCEPHIN 2 GM in Sodium Chloride 0.9% 100 ML IVPB SCH (12:52)
--- NOTE | 2016-11-16 14:52 | PRG ---
DATE OF PROCEDURE: 11/16/2016 SUBJECTIVE: Mr. Perez is doing well. He is noticing slightly more raspiness to his voice. He denies any other concerns. He does not want to go back up on his prednisone. His bladder control i s improving. He is trying to do timed voiding. OBJECTIVE: VITAL SIGNS: He is afebrile, heart rate is 59, respirations are 16, oxygen saturation is 94%, blood pressure 129/65. CARDIOVASCULAR: S1 and S2 plus. RESPIRATORY: Normal vesicular breath sounds. ABDOMEN: Soft, obese, nontender, bowel sounds heard in all quadrants. EXTREMITIES: Without cyanosis or clubbing. Superficial ulceration in the posterior aspect of the l ower 1/3 of his left leg looks pretty healthy. LABORATORY VALUES: Pending. IMPRESSION: 1. Resolving cellulitis. 2. Morbid obesity. 3. Myasthenia gravis. 4. Obstructive sleep apnea. 5. Resolved urinary retention and improving deconditioning. PLAN: 1. Continue current medications. 2. Nutritional support. 3. Wound care. 4. DVT and stress ulcer prophylaxis. 5. Decubitus precautions. 6. Stop Rocephin today. 7. Recheck BMP, BNP in the morning.
[2016-11-16] MEDS: Warfarin Sodium 5 MG TAB PO SCH (17:04)
[2016-11-16] MEDS: Lisinopril 20 MG TAB PO SCH (20:52)
[2016-11-16] MEDS: PYRIDOSTIGMINE BROMIDE 180 MG PO SCH (20:52)
[2016-11-16] MEDS: AZELASTINE EA NARE SCH (20:56)
[2016-11-17 04:58] LABS: #Basophils 0.1 thou/uL (0.0-0.2); #Eosinphils 0.1 thou/uL (0.0-0.7); #Lymphocytes 3.9 thou/uL (1.20-3.40); #Neutrophils 4.1 thou/uL (1.40-6.50); %Basophils 0.9 % (0.0-1.0); %Eosinophils 0.8 % (0.0-10.0); %Lymphocytes 42.5 % (21.0-51.0); %Monocytes 10.9 % (0.0-10.0); Hematocrit 33.9 % (42.0-52.0); Mean Platelet Volume 6.8 fL (7.4-10.4); Red Blood Cell (RBC) Count 3.61 mill/uL (4.70-6.10); White Blood Cell (WBC) Count 9.2 thou/uL (4.8-10.8)
[2016-11-17 05:29] LABS: Prothrombin Time 25.8 SEC (12.0-14.7)
[2016-11-17 05:33] LABS: Anion Gap 17 mmol/L (10-20); BUN (Urea Nitrogen) 22 mg/dL (8.4-25.7); Calc. Creatinine Clearance 232 mL/min (70-130); Calcium 8.4 mg/dL (7.8-10.44); Carbon Dioxide 27 mmol/L (23-31); Chloride 102 mmol/L (98-107); Estimated GFR-MDRD 80
[2016-11-17] MEDS: Fluticasone Propionate Nasal Spray 16 gm Bottle NASAL SCH (08:39)
[2016-11-17] MEDS: predniSONE 10 MG TAB PO SCH (08:41)
[2016-11-17] MEDS: Carvedilol 25 MG TAB PO SCH ×2 (08:41→16:56)
[2016-11-17] MEDS: Potassium Chloride 20 MEQ TAB PO SCH ×3 (08:41→16:56)
[2016-11-17] MEDS: Colchicine 0.6 MG TAB PO SCH (08:42)
[2016-11-17] MEDS: Doxycycline 100 MG CAP PO SCH ×2 (08:42→20:55)
[2016-11-17] MEDS: Mycophenolate 250 MG CAP PO SCH ×2 (08:43→20:55)
[2016-11-17] MEDS: Nystatin Powder 15 GM BOT TOP SCH ×2 (08:43→20:54)
[2016-11-17] MEDS: Famotidine 20 MG TAB PO SCH ×2 (08:43→20:56)
[2016-11-17] MEDS: Pyridostigmine Bromide IR 60 MG TAB PO SCH ×3 (08:44→16:56)
[2016-11-17] MEDS: Pregabalin 75 MG CAP PO SCH ×3 (08:44→20:56)
[2016-11-17] MEDS: Saccharomyces boulardii 250 MG CAP PO SCH (08:45)
[2016-11-17] MEDS: Torsemide 20 MG TAB PO SCH (08:46)
[2016-11-17] MEDS: Tamsulosin HCl 0.4 MG CAP PO SCH (08:46)
[2016-11-17] MEDS: HYDROcodone/Acetaminophen 10/325 mg Tablet PO PRN ×3 (08:46→20:57)
[2016-11-17] MEDS: Diphenoxylate HCl/Atropine Tablet PO PRN ×2 (08:47→14:27)
[2016-11-17] MEDS: Warfarin Sodium 5 MG TAB PO SCH (16:57)
[2016-11-17] MEDS: PYRIDOSTIGMINE BROMIDE 180 MG PO SCH (20:53)
[2016-11-17] MEDS: AZELASTINE EA NARE SCH (20:53)
[2016-11-17] MEDS: Lisinopril 20 MG TAB PO SCH (20:56)
--- NOTE | 2016-11-17 23:19 | PRG ---
DATE OF SERVICE: 11/17/2016 SUBJECTIVE: Mr. Perez is doing well. Denies any complaints. He has been getting up and going to the bathroom on his own every 2 hours. He has not had any accidents. He is doing well otherwise , speech is strong. He denies any issues with swelling at his vision. OBJECTIVE: VITAL SIGNS: He is afebrile, heart rate is 64, respirations 18, oxygen saturation is 94%, blood pre ssure is 136/62. CARDIOVASCULAR: S1, S2 plus. RESPIRATORY: Normal vesicular breath sounds. ABDOMEN: Soft, obese, nontender. Bowel sounds heard in all quadrants. EXTREMITIES: Without cyanosis, clubbing, stasis dermatitis present. Superficial ulceration with dr allen in his left leg. LABORATORY VALUES: White count is 9.2, H\T\H is 10.8 and 33.9. INR is 2.4, sodium 142, potassium 3 .6, BUN and creatinine is 22 and 1.95, blood sugars are 130, 127, 98, and 114. IMPRESSION: 1. Myasthenia gravis. 2. Morbid obesity. 3. Resolving lower extremity cellulitis. 4. Improving urinary retention. 5. Obstructive sleep apnea. PLAN: 1. Continue current medications. 2. Physical therapy. 3. Nutritional support. 4. DVT and stress ulcer prophylaxis. 5. Decubitus precautions. 6. Routine laboratory values.
[2016-11-18 05:29] LABS: Prothrombin Time 25.1 SEC (12.0-14.7)
[2016-11-18] MEDS: predniSONE 10 MG TAB PO SCH (07:45)
[2016-11-18] MEDS: Carvedilol 25 MG TAB PO SCH ×2 (07:45→17:34)
[2016-11-18] MEDS: Potassium Chloride 20 MEQ TAB PO SCH ×3 (07:45→17:33)
[2016-11-18] MEDS: Fluticasone Propionate Nasal Spray 16 gm Bottle NASAL SCH (09:24)
[2016-11-18] MEDS: Nystatin Powder 15 GM BOT TOP SCH ×2 (09:24→20:37)
[2016-11-18] MEDS: Tamsulosin HCl 0.4 MG CAP PO SCH (09:28)
[2016-11-18] MEDS: Torsemide 20 MG TAB PO SCH (09:28)
[2016-11-18] MEDS: Diphenoxylate HCl/Atropine Tablet PO PRN ×2 (09:29→17:33)
[2016-11-18] MEDS: Pyridostigmine Bromide IR 60 MG TAB PO SCH ×3 (09:29→17:34)
[2016-11-18] MEDS: Famotidine 20 MG TAB PO SCH (09:30)
[2016-11-18] MEDS: Mycophenolate 250 MG CAP PO SCH ×2 (09:32→20:37)
[2016-11-18] MEDS: Doxycycline 100 MG CAP PO SCH (09:33)
[2016-11-18] MEDS: Pregabalin 75 MG CAP PO SCH ×3 (09:34→20:38)
[2016-11-18] MEDS: HYDROcodone/Acetaminophen 10/325 mg Tablet PO PRN ×3 (09:36→20:39)
[2016-11-18] MEDS: Colchicine 0.6 MG TAB PO SCH (09:45)
[2016-11-18] MEDS: Saccharomyces boulardii 250 MG CAP PO SCH (09:46)
--- NOTE | 2016-11-18 14:42 | PRG ---
DATE OF SERVICE: 11/18/2016. SUBJECTIVE: Ms. Perez is doing well. Denies any complaints, resting comfortably, tolerating hi s medications. OBJECTIVE: VITAL SIGNS: He is afebrile, heart rate is 66, respirations 20, oxygen saturation 95%, blood pressu re is 130/63. CARDIOVASCULAR: S1, S2 plus. RESPIRATORY: Normal vesicular breath sounds. ABDOMEN: Soft, obese, nontender, bowel sounds heard in all quadrants. EXTREMITIES: Chronic venous stasis/lymphedema with much improved left lower extremity cellulitis. IMPRESSION: 1. Resolved left lower extremity cellulitis. 2. Chronic venous insufficiency versus lymphedema. 3. Morbid obesity. 4. Myasthenia gravis. 5. Resolved urinary retention. 6. Improving deconditioning. 7. History of gout. PLAN: 1. Continue current medications. 2. Nutritional support. 3. Deep venous thrombosis and stress ulcer prophylaxes. 4. Decubitus precautions. 5. Stop doxycycline. 6. Stop Pepcid as he is already on Protonix. 7. Monitor colchicine and see if he continues to need it. 8. Continue physical therapy, routine laboratory values.
[2016-11-18] MEDS: Warfarin Sodium 5 MG TAB PO SCH (17:34)
[2016-11-18] MEDS: Lisinopril 20 MG TAB PO SCH (20:36)
[2016-11-18] MEDS: PYRIDOSTIGMINE BROMIDE 180 MG PO SCH (20:37)
[2016-11-18] MEDS: AZELASTINE EA NARE SCH (20:38)
[2016-11-19 05:31] LABS: Prothrombin Time 25.8 SEC (12.0-14.7)
[2016-11-19] MEDS: Pregabalin 75 MG CAP PO SCH ×3 (08:33→21:46)
[2016-11-19] MEDS: Carvedilol 25 MG TAB PO SCH ×2 (08:33→17:38)
[2016-11-19] MEDS: Colchicine 0.6 MG TAB PO SCH (08:34)
[2016-11-19] MEDS: Mycophenolate 250 MG CAP PO SCH ×2 (08:34→21:46)
[2016-11-19] MEDS: Torsemide 20 MG TAB PO SCH (08:35)
[2016-11-19] MEDS: Saccharomyces boulardii 250 MG CAP PO SCH (08:36)
[2016-11-19] MEDS: Pyridostigmine Bromide IR 60 MG TAB PO SCH ×3 (08:36→17:37)
[2016-11-19] MEDS: predniSONE 10 MG TAB PO SCH (08:37)
[2016-11-19] MEDS: Potassium Chloride 20 MEQ TAB PO SCH ×3 (08:38→17:38)
[2016-11-19] MEDS: Fluticasone Propionate Nasal Spray 16 gm Bottle NASAL SCH (08:39)
[2016-11-19] MEDS: Tamsulosin HCl 0.4 MG CAP PO SCH (08:39)
[2016-11-19] MEDS: Nystatin Powder 15 GM BOT TOP SCH ×2 (08:40→21:46)
[2016-11-19] MEDS: HYDROcodone/Acetaminophen 10/325 mg Tablet PO PRN ×3 (09:17→21:47)
[2016-11-19] MEDS: Diphenoxylate HCl/Atropine Tablet PO PRN (11:49)
--- NOTE | 2016-11-19 13:28 | PRG ---
DATE OF SERVICE: 11/19/2016. SUBJECTIVE: Mr. Perez is doing well. Denies any complaints. Discussed with nursing. OBJECTIVE: VITAL SIGNS: He is afebrile, heart rate is 60, respirations are 18, blood pressure is 129/65. CARDIOVASCULAR: S1, S2 plus. RESPIRATORY: Normal vesicular breath sounds. ABDOMEN: Soft, obese, nontender, bowel sounds heard in all quadrants. EXTREMITIES: Improved cellulitis, resolved cellulitis. He just has chronic stasis dermatitis. LABORATORY VALUES: INR is 2.4. IMPRESSION: 1. Myasthenia gravis. 2. Resolved cellulitis. 3. Morbid obesity. 4. Improving deconditioning. 5. Resolved urinary retention. PLAN: 1. Continue current medications. 2. Physical therapy. 3. Nutritional support. 4. Monitor for any exacerbation of myasthenia. 5. Routine laboratory values.
[2016-11-19] MEDS: Warfarin Sodium 5 MG TAB PO SCH (17:38)
[2016-11-19] MEDS: Lisinopril 20 MG TAB PO SCH (21:45)
[2016-11-19] MEDS: AZELASTINE EA NARE SCH (21:46)
[2016-11-19] MEDS: Pyridostigmine Bromide 180 MG SRTAB PO SCH (21:47)
[2016-11-20 06:02] LABS: Prothrombin Time 26.4 SEC (12.0-14.7)
[2016-11-20] MEDS: Potassium Chloride 20 MEQ TAB PO SCH ×3 (08:40→17:23)
[2016-11-20] MEDS: predniSONE 10 MG TAB PO SCH (08:40)
[2016-11-20] MEDS: Carvedilol 25 MG TAB PO SCH ×2 (08:40→17:23)
[2016-11-20] MEDS: Fluticasone Propionate Nasal Spray 16 gm Bottle NASAL SCH (08:41)
[2016-11-20] MEDS: Colchicine 0.6 MG TAB PO SCH (08:41)
[2016-11-20] MEDS: Mycophenolate 250 MG CAP PO SCH ×2 (08:42→21:25)
[2016-11-20] MEDS: Nystatin Powder 15 GM BOT TOP SCH ×2 (08:42→21:26)
[2016-11-20] MEDS: Pregabalin 75 MG CAP PO SCH ×3 (08:43→21:26)
[2016-11-20] MEDS: Saccharomyces boulardii 250 MG CAP PO SCH (08:44)
[2016-11-20] MEDS: Pyridostigmine Bromide IR 60 MG TAB PO SCH ×3 (08:44→17:23)
[2016-11-20] MEDS: Tamsulosin HCl 0.4 MG CAP PO SCH (08:44)
[2016-11-20] MEDS: Torsemide 20 MG TAB PO SCH ×2 (08:44→09:32)
[2016-11-20] MEDS: HYDROcodone/Acetaminophen 10/325 mg Tablet PO PRN ×3 (08:45→21:27)
[2016-11-20] MEDS: Diphenoxylate HCl/Atropine Tablet PO PRN (14:46)
[2016-11-20] MEDS: Warfarin Sodium 5 MG TAB PO SCH (17:24)
--- NOTE | 2016-11-20 18:19 | PRG ---
DATE OF SERVICE: 11/20/2016 SUBJECTIVE: Mr. Perez is doing the same. He is stressed out because apparently his Insurance h as declined his stay here or to going to the long-term from tomorrow. He is trying to figure out what his options are. He is working with says or to figure out if he can pay out of his pocket to stay here or at the nursing facility. He is getting stronger, but he still has some incontinence an d he does not feel that he is safe going home. OBJECTIVE: VITAL SIGNS: He is afebrile, heart rate is 61, respirations are 20, oxygen saturation is 94%, blood pressure 121/57. CARDIOVASCULAR: S1, S2 plus. RESPIRATORY: Normal vesicular breath sounds. ABDOMEN: Soft, obese, nontender, bowel sounds heard in all quadrants. EXTREMITIES: Chronic venous insufficiency versus lymphedema, resolved cellulitis, superficial ulcer ation with dressing. LABORATORY VALUES: Blood sugars are 120-145, 106 and 122. IMPRESSION: 1. Myasthenia gravis. 2. Morbid obesity. 3. Chronic venous insufficiency versus lymphedema. 4. Improving deconditioning. 5. Resolving urinary retention. PLAN: 1. Continue current medications. 2. Nutritional support. 3. DVT and stress ulcer prophylaxis. 4. Decubitus precautions. 5. Dr. Leonela Daniel national facilities manager noon from this evening. Discuss with patient that he will be seeing Mr Janice Perez from tomorrow. I discussed with nursing as well.
[2016-11-20] MEDS: Lisinopril 20 MG TAB PO SCH (21:25)
[2016-11-20] MEDS: AZELASTINE EA NARE SCH (21:26)
[2016-11-20] MEDS: Pyridostigmine Bromide 180 MG SRTAB PO SCH (21:27)
[2016-11-21 06:48] LABS: #Basophils 0.1 thou/uL (0.0-0.2); #Eosinphils 0.1 thou/uL (0.0-0.7); #Lymphocytes 3.9 thou/uL (1.20-3.40); #Monocytes 0.8 thou/uL (0.11-0.59); #Neutrophils 4.3 thou/uL (1.40-6.50); %Eosinophils 0.9 % (0.0-10.0); %Lymphocytes 42.6 % (21.0-51.0); %Monocytes 8.9 % (0.0-10.0); Mean Platelet Volume 6.8 fL (7.4-10.4); Red Blood Cell (RBC) Count 3.48 mill/uL (4.70-6.10); White Blood Cell (WBC) Count 9.2 thou/uL (4.8-10.8)
[2016-11-21 06:57] LABS: Anion Gap 19 mmol/L (10-20); BUN (Urea Nitrogen) 20 mg/dL (8.4-25.7); Calc. Creatinine Clearance 237 mL/min (70-130); Calcium 8.4 mg/dL (7.8-10.44); Carbon Dioxide 27 mmol/L (23-31); Chloride 102 mmol/L (98-107); Estimated GFR-MDRD 82; Prothrombin Time 27.3 SEC (12.0-14.7)
[2016-11-21] MEDS: Carvedilol 25 MG TAB PO SCH (08:16)
[2016-11-21] MEDS: Fluticasone Propionate Nasal Spray 16 gm Bottle NASAL SCH (08:16)
[2016-11-21] MEDS: Potassium Chloride 20 MEQ TAB PO SCH ×2 (08:16→12:32)
[2016-11-21] MEDS: predniSONE 10 MG TAB PO SCH (08:17)
[2016-11-21] MEDS: Colchicine 0.6 MG TAB PO SCH (08:18)
[2016-11-21] MEDS: Mycophenolate 250 MG CAP PO SCH (08:18)
[2016-11-21] MEDS: Nystatin Powder 15 GM BOT TOP SCH (08:19)
[2016-11-21] MEDS: Pregabalin 75 MG CAP PO SCH (08:19)
[2016-11-21] MEDS: Pyridostigmine Bromide IR 60 MG TAB PO SCH ×2 (08:20→12:32)
[2016-11-21] MEDS: Tamsulosin HCl 0.4 MG CAP PO SCH (08:21)
[2016-11-21] MEDS: Saccharomyces boulardii 250 MG CAP PO SCH (08:21)
[2016-11-21] MEDS: Torsemide 20 MG TAB PO SCH (08:21)
[2016-11-21] MEDS: Diphenoxylate HCl/Atropine Tablet PO PRN (08:22)
[2016-11-21] MEDS: HYDROcodone/Acetaminophen 10/325 mg Tablet PO PRN ×2 (08:22→12:33)
[2016-11-21 08:49] VITALS: BP 127/60; TEMP 97
--- NOTE | 2016-11-21 22:26 | DIS ---
DATE OF ADMISSION: 11/01/2016 DATE OF DISCHARGE: 11/21/2016 Mr. Perez is a 66-year-old morbidly obese white male who was transferred to [facility] for continued IV antibiotics, physical therapy, and occupational therapy. He was admitted 5 feet 11 inches at 461 pounds with BMI of 64. While here, he has actually done very well. We have added one of his myasthenia gravis medicine. Has done well with COPD and basically he is ready for discharge at this time. DISCHARGE MEDICATIONS: Will include the followin. Tylenol #4 one q.8 hours p.r.n. severe pain. Prescription has been given. 2. Norvasc/amlodipine 5 mg at bedtime. 3. Carvedilol 25 mg b.i.d. 4. Colchicine 0.6 mg daily. 5. Lomotil p.r.n. 6. Flonase p.r.n. 7. The patient states he does not do insulin home. 8. Lisinopril 40 mg at bedtime. 9. CellCept 1000 mg p.o. b.i.d. 10. Potassium chloride 20 mEq, he takes 2 pills 3 times a day. 11. Prednisone 35 mg each morning. 12. Lyrica 75 mg daily. 13. Mestinon 30 mg at 0900, 1300 hours and 1700 hours. 14. Mestinon SR 90 mg at bedtime. 15. Florastor p.r.n. 16. Flomax 0.4 mg daily. 17. Torsemide 100 mg q.a.m. 18. Coumadin 5 mg at 1700 hours. PHYSICAL EXAMINATION: GENERAL: This is a well-developed, morbidly obese white male in no apparent distress at this time. HEENT: Reveals normocephalic, nontraumatic cranium. Pupils equal, round, and reactive. Extraocular movements intact. Nose and throat slightly dry. NECK: Supple, without masses, nodes or bruits. CHEST: Clear to auscultation. No rales, rhonchi or wheezes are heard. HEART: Regular rate and rhythm without murmurs, gallops or rubs. ABDOMEN: Morbidly obese, unable to feel any organ; soft, nontender, without organomegaly, no rebound or guarding is noted. GENITOURINARY: Deferred. EXTREMITIES: Reveals no clubbing, cyanosis or edema. NEUROLOGIC: The patient has no focal deficits. He is able to walk 200 feet with his walker, stopping several times. He is oriented to person, place and time. IMPRESSION: 1. Discharged home. 2. Home health, we will continue pick him up. 3. He will have home health doctor to come up and visit him and adjust medications. 4. We did discuss medications and I have written prescription for what he does not have at home. 5. He is very knowledgeable and he did very, very well. 6. Spent more than 50 minutess discharging this [facility]
== END 2016-11-21 13:15 | disposition home health service (06) | DRG 603 ==
LOC: NAV ACUTE 19:05
PROVIDERS: ADMIT Family Medicine; ATTEND Internal Medicine
PROC: 5A09357 Assistance with Respiratory Ventilation, Less than 24 Consecutive Hours, Continuous Positive Airway Pressure (ICD-10-PCS; principal; 2016-11-03)
PROC: 5A09357 Assistance with Respiratory Ventilation, Less than 24 Consecutive Hours, Continuous Positive Airway Pressure (ICD-10-PCS; 2016-11-04)
PROC: 5A09357 Assistance with Respiratory Ventilation, Less than 24 Consecutive Hours, Continuous Positive Airway Pressure (ICD-10-PCS; 2016-11-05)
PROC: 5A09357 Assistance with Respiratory Ventilation, Less than 24 Consecutive Hours, Continuous Positive Airway Pressure (ICD-10-PCS; 2016-11-16)
PROC: 5A09357 Assistance with Respiratory Ventilation, Less than 24 Consecutive Hours, Continuous Positive Airway Pressure (ICD-10-PCS; 2016-11-17)
PROC: 5A09357 Assistance with Respiratory Ventilation, Less than 24 Consecutive Hours, Continuous Positive Airway Pressure (ICD-10-PCS; 2016-11-18)
DX: L03.116 Cellulitis of left lower limb (principal); I50.32 Chronic diastolic (congestive) heart failure; E09.42 Drug or chemical induced diabetes mellitus with neurological complications with diabetic polyneuropathy; Z68.44 Body mass index [BMI] 60.0-69.9, adult; L97.921 Non-pressure chronic ulcer of unspecified part of left lower leg limited to breakdown of skin; G47.33 Obstructive sleep apnea (adult) (pediatric); E66.01 Morbid (severe) obesity due to excess calories; E87.6 Hypokalemia; G70.00 Myasthenia gravis without (acute) exacerbation; J44.9 Chronic obstructive pulmonary disease, unspecified; N40.0 Benign prostatic hyperplasia without lower urinary tract symptoms; M10.9 Gout, unspecified; I87.2 Venous insufficiency (chronic) (peripheral); R19.7 Diarrhea, unspecified; B18.2 Chronic viral hepatitis C; N31.8 Other neuromuscular dysfunction of bladder; Z86.718 Personal history of other venous thrombosis and embolism; Z79.01 Long term (current) use of anticoagulants; T38.0X5S Adverse effect of glucocorticoids and synthetic analogues, sequela; Z79.4 Long term (current) use of insulin; N40.1 Benign prostatic hyperplasia with lower urinary tract symptoms
CPT/HCPCS: 36415; 36416; 80048; 80053; 83880; 85007; 85025; 85027; 85610; 94640; 97602; A4216; C1751; G8978-GP-CL; G8979-GP-CJ; G8990-GP-CJ; G8991-GP-CI; J0696; J7050; J7506; J7512; J7517; J7620

== ENCOUNTER 2017-05-17 10:10 | Outpatient (CLI) | payer MEDICARE ==
[2017-05-17 11:49] LABS: INR-International Normal Ratio 2.9; Prothrombin Time 31.6 SEC (12.0-14.7)
== END 2017-05-17 10:11 | disposition home or self-care (01) ==
LOC: NAV LABSP 10:10
PROVIDERS: ATTEND Internal Medicine
DX: Z51.81 Encounter for therapeutic drug level monitoring (principal); I48.91 Unspecified atrial fibrillation; Z79.01 Long term (current) use of anticoagulants
CPT/HCPCS: 85610

== ENCOUNTER 2017-05-20 08:18 | Outpatient (CLI) | payer MEDICARE ==
[2017-05-20 11:08] LABS: INR-International Normal Ratio 2.8; Prothrombin Time 30.9 SEC (12.0-14.7)
== END 2017-05-20 08:19 | disposition home or self-care (01) ==
LOC: NAV LABSP 08:18
PROVIDERS: ATTEND Internal Medicine
DX: Z51.81 Encounter for therapeutic drug level monitoring (principal); I82.409 Acute embolism and thrombosis of unspecified deep veins of unspecified lower extremity; G70.00 Myasthenia gravis without (acute) exacerbation; B19.20 Unspecified viral hepatitis C without hepatic coma; I50.9 Heart failure, unspecified; M19.90 Unspecified osteoarthritis, unspecified site; Z79.01 Long term (current) use of anticoagulants
CPT/HCPCS: 36415; 85610

== ENCOUNTER 2017-05-23 17:38 | Outpatient (CLI) | payer MEDICARE ==
[2017-05-23 20:26] LABS: INR-International Normal Ratio 1.4; Prothrombin Time 17.9 SEC (12.0-14.7)
== END 2017-05-23 17:39 | disposition home or self-care (01) ==
LOC: NAV LABSP 17:38
PROVIDERS: ATTEND Internal Medicine
DX: Z51.81 Encounter for therapeutic drug level monitoring (principal); Z79.01 Long term (current) use of anticoagulants
CPT/HCPCS: 36415; 85610

== ENCOUNTER 2017-06-02 11:07 | Outpatient (CLI) | payer MEDICARE ==
[2017-06-02 12:53] LABS: INR-International Normal Ratio 1.6; Prothrombin Time 19.6 SEC (12.0-14.7)
== END 2017-06-02 11:08 | disposition home or self-care (01) ==
LOC: NAV LABSP 11:07
PROVIDERS: ATTEND Internal Medicine
DX: Z51.81 Encounter for therapeutic drug level monitoring (principal); Z79.01 Long term (current) use of anticoagulants
CPT/HCPCS: 36415; 85610

== ENCOUNTER 2017-06-05 07:12 | Outpatient (CLI) | payer MEDICARE ==
[2017-06-05 07:37] LABS: INR-International Normal Ratio 2.7; Prothrombin Time 30.1 SEC (12.0-14.7)
== END 2017-06-05 07:13 | disposition home or self-care (01) ==
LOC: NAV LABSP 07:12
PROVIDERS: ATTEND Internal Medicine
DX: Z51.81 Encounter for therapeutic drug level monitoring (principal); Z79.01 Long term (current) use of anticoagulants
CPT/HCPCS: 36415; 85610

== ENCOUNTER 2017-06-09 08:24 | Outpatient (CLI) | payer MEDICARE ==
[2017-06-09 09:03] LABS: INR-International Normal Ratio 3.9
== END 2017-06-09 08:25 | disposition home or self-care (01) ==
LOC: NAV LABSP 08:24
PROVIDERS: ATTEND Internal Medicine
DX: Z51.81 Encounter for therapeutic drug level monitoring (principal); Z79.01 Long term (current) use of anticoagulants
CPT/HCPCS: 36415; 85610

== ENCOUNTER 2017-06-11 07:48 | Outpatient (CLI) | payer MEDICARE ==
[2017-06-11 08:24] LABS: INR-International Normal Ratio 3.9
== END 2017-06-11 07:49 | disposition home or self-care (01) ==
LOC: NAV LABSP 07:48
PROVIDERS: ATTEND Internal Medicine
DX: Z51.81 Encounter for therapeutic drug level monitoring (principal); Z79.01 Long term (current) use of anticoagulants
CPT/HCPCS: 36415; 85610

== ENCOUNTER 2017-06-13 07:56 | Outpatient (CLI) | payer MEDICARE ==
[2017-06-13 08:27] LABS: INR-International Normal Ratio 2.3; Prothrombin Time 25.9 SEC (12.0-14.7)
== END 2017-06-13 07:57 | disposition home or self-care (01) ==
LOC: NAV LABSP 07:56
PROVIDERS: ATTEND Internal Medicine
DX: Z51.81 Encounter for therapeutic drug level monitoring (principal); Z79.01 Long term (current) use of anticoagulants
CPT/HCPCS: 36415; 85610

== ENCOUNTER 2017-08-08 12:44 | Outpatient (CLI) | payer MEDICARE ==
[2017-08-08 13:03] LABS: Prothrombin Time 23.3 SEC (12.0-14.7)
== END 2017-08-08 12:45 | disposition home or self-care (01) ==
LOC: NAV LABSP 12:44
PROVIDERS: ATTEND Internal Medicine
DX: Z51.81 Encounter for therapeutic drug level monitoring (principal); Z79.01 Long term (current) use of anticoagulants
CPT/HCPCS: 36415; 85610

== ENCOUNTER 2017-08-31 21:01 | Emergency (ER) | payer MEDICARE ==
[2017-08-31 22:24] LABS: #Basophils 0.1 thou/uL (0.0-0.2); #Eosinphils 0.1 thou/uL (0.0-0.7); #Lymphocytes 1.8 thou/uL (1.20-3.40); #Neutrophils 5.8 thou/uL (1.40-6.50); %Basophils 0.7 % (0.0-1.0); %Eosinophils 0.9 % (0.0-10.0); %Lymphocytes 20.2 % (21.0-51.0); %Monocytes 11.4 % (0.0-10.0); %Neutrophils 66.7 % (42.0-75.0); Hemoglobin 12.4 g/dL (14.0-18.0); Mean Corpuscular HGB CONC 32.9 g/dL (32.0-36.0); Mean Corpuscular Hemoglobin 29.5 pg (27.0-31.0); Mean Corpuscular Volume 89.7 fl (80.0-94.0); Mean Platelet Volume 8.5 fL (7.4-10.4); Platelet Count 152 thou/uL (130-400); RBC Distribution Width 14.8 % (11.5-14.5); Red Blood Cell (RBC) Count 4.21 mill/uL (4.70-6.10); White Blood Cell (WBC) Count 8.7 thou/uL (4.8-10.8)
[2017-08-31 22:38] LABS: ALT (SGPT) 45 U/L (8-55); AST (SGOT) 28 U/L (5-34); Albumin 3.5 g/dL (3.4-4.8); Alkaline Phosphatase 46 U/L (40-150); Anion Gap 20 mmol/L (10-20); BUN (Urea Nitrogen) 15 mg/dL (8.4-25.7); Bilirubin, Total 0.4 mg/dL (0.2-1.2); Calc. Creatinine Clearance 0 mL/min (70-130); Carbon Dioxide 24 mmol/L (23-31); Chloride 101 mmol/L (98-107); Estimated GFR-MDRD Greater than 90; Globulin 2.6 g/dL (2.4-3.5); Glucose 118 mg/dL (80-115); Potassium 3.7 mmol/L (3.5-5.1); Protein, Total 6.1 g/dL (5.8-8.1); Sodium 141 mmol/L (136-145)
[2017-08-31] MEDS ORDERED: Diphenoxylate HCl/Atropine Tablet ONE (22:52)
== END 2017-08-31 23:55 ==
LOC: NAV ERS 21:01
DX: R19.7 Diarrhea, unspecified (principal); L25.9 Unspecified contact dermatitis, unspecified cause; I11.0 Hypertensive heart disease with heart failure; I50.9 Heart failure, unspecified; E66.9 Obesity, unspecified; J44.9 Chronic obstructive pulmonary disease, unspecified; F41.9 Anxiety disorder, unspecified; Z87.891 Personal history of nicotine dependence; Z79.899 Other long term (current) drug therapy; Z79.891 Long term (current) use of opiate analgesic; Z79.01 Long term (current) use of anticoagulants
CPT/HCPCS: 80053; 84443; 85025; 96360

== ENCOUNTER 2018-07-31 10:32 | Emergency (ER) | payer MEDICARE, OTHER | END 2018-07-31 10:46 | LOC: NAV ERS 10:32 | DX: T16.1XXA Foreign body in right ear, initial encounter (principal); I11.0 Hypertensive heart disease with heart failure; I50.9 Heart failure, unspecified; J44.9 Chronic obstructive pulmonary disease, unspecified; E66.9 Obesity, unspecified; F41.9 Anxiety disorder, unspecified; Z87.891 Personal history of nicotine dependence; Z79.899 Other long term (current) drug therapy; Z79.1 Long term (current) use of non-steroidal anti-inflammatories (NSAID) | CPT/HCPCS: 69200 ==